=== PATIENT | female | born 2000 | race Caucasian/White ===

== ENCOUNTER → 2024-08-31 15:24 | Emergency (ER) | payer OTHER, SELFPAY ==
--- NOTE | 2024-08-31 16:12 | ED.GENMED ---
History of Present Illness
General
Chief Complaint: Skin Problem
Source: patient
Exam Limitations: none
Time Seen by Provider: 08/31/24 16:05
History of Present Illness
History of Present Illness:
23-year-old female presents with painful area of swelling to the right side of the anus starting yesterday getting worse. She has a hemorrhoid in the same area. She was seen at the clinic and was sent here. She denies fevers chest pain shortness
of breath dysuria or difficulty moving her bowels. No vomiting.
Phy Exam
Physical Exam
Physical Exam:
General: Well-appearing female no acute respiratory distress HEENT: Normocephalic atraumatic
Abdomen is soft nontender nondistended no guarding or rebound
Extremities: No cyanosis or edema
Rectal exam: Please note this was performed with female industrial gas service helper in the room. There is a 1 cm sized area of induration and fluctuance just to the right of the anus. There is a pinhole that is draining purulent fluid.
Course
Orders/Labs/Results
Orders:
Orders
08/31/24 15:39
1:1 Observation - Suicide/ Violent Behavior As Directed
08/31/24 16:36
Crisis Consult Urgent
Reason for Consult: SI
Vital Signs
Initial and Last Documented VS:
Initial Vital Signs
Temp Pulse Resp Pulse Ox
98.1 F 103 20 100
08/31/24 15:30 08/31/24 15:30 08/31/24 15:30 08/31/24 15:30
Last Documented Vital Signs
Temp Pulse Resp Pulse Ox
98.1 F 103 20 100
08/31/24 15:30 08/31/24 15:30 08/31/24 15:30 08/31/24 15:30
MDM/Problems Addressed
Differential Diagnosis Includes:
Exam most consistent with perianal abscess small and superficial in nature. Explained treatment options to the patient. The abscess was incised and drained. A moderate amount of purulent material was received. Loculations were broken up. Gauze
was placed in the area to catch any drainage. Will start on Augmentin.
Patient was screened positive for suicidal ideation. She has no intent to harm herself. She thought about and thinks about frequently taking too many pills. Crisis consult placed.
*Critical Care Note
Total Time (30-74mins, 75-104mins- exclusive of procedures): Not Applicable
Update Note
Update Note:
Patient seen and evaluated by crisis. At this point no imminent risk for injuring herself or others. She will follow-up with outpatient resources given to her by crisis department. Will prescribe Augmentin. Stable for discharge
ED Attending Note
-
Portions of this chart may have been created with voice recognition software.� Occasional wrong word or��sound alike� substitutions may have occurred due to the inherent limitations of voice recognition software.
Discharge Plan
Departure
Patient Disposition: Home (Routine Discharge)
Date of Disposition: 08/31/24
Time of Disposition: 17:45
Patient with high blood pressure during this ER visit?: No
Discharge Problem:
Abscess, perianal
Instructions: Wound Care (DC)
Prescriptions:
New
amoxicillin-pot clavulanate 875-125 mg tablet
1 tab PO BID Qty: 14 0RF
hydrocortisone [Proctocort] 1 % cream
1 applic topical TID Qty: 28.35 0RF
Referrals:
UNKNOWN - PT DOES,NOT KNOW [Unknown Provider] -
Activity Restrictions/Additional Instructions:
Use antibiotic as directed. Change gauze dressing as needed. Return if worse otherwise follow-up with your doctor
Interventions
Interventions:
*Risk Screen - Suicide Last Done: 08/31/24 15:30
*Neglect/Abuse Screening Last Done: 08/31/24 15:30
Discharge Date and Time
Print Language: THAI
== END | disposition home or self-care (01) ==
LOC: EMR 15:24
PROVIDERS: EMERGENCY PHYSICIAN Emergency Medicine
DX: K61.0 Anal abscess (principal)
CPT/HCPCS: 99282; 46050

== ENCOUNTER → 2024-09-17 14:11 | Outpatient (REF) | payer OTHER, SELFPAY | LOC: HWRAD 14:11 | DX: M25.531 Pain in right wrist (principal) | CPT/HCPCS: 73100 ==

== ENCOUNTER → 2024-10-16 12:10 | Outpatient (REF) | payer OTHER, SELFPAY | LOC: HWRAD 12:10 | DX: M25.531 Pain in right wrist (principal) | CPT/HCPCS: 73070; 73090; 73120 ==

== ENCOUNTER → 2025-02-27 10:48 | Outpatient (REF) | payer OTHER, SELFPAY | LOC: DHSLP 10:48 | DX: G47.33 Obstructive sleep apnea (adult) (pediatric) (principal) | CPT/HCPCS: 95810 ==

== ENCOUNTER → 2025-04-26 14:20 | Outpatient (REF) | payer OTHER, SELFPAY | LOC: RCS 14:20 | PROVIDERS: ATTENDING PHYSICIAN Internal Medicine Cardiovascular Disease | DX: R07.89 Other chest pain (principal) | CPT/HCPCS: 93017 ==

== ENCOUNTER → 2025-05-03 08:26 | Outpatient (REF) | payer OTHER, SELFPAY | LOC: RCS 08:26 | PROVIDERS: ATTENDING PHYSICIAN Internal Medicine Cardiovascular Disease | DX: R07.89 Other chest pain (principal); R00.2 Palpitations | CPT/HCPCS: 93306 ==

== ENCOUNTER → 2025-05-21 08:30 | Outpatient (REF) | payer OTHER, SELFPAY ==
[2025-05-21 10:42] LABS: Hematocrit 38.0 % (37.0-47.0); Hemoglobin 12.0 g/dL (12.0-16.0); Mean Corp Hgb Conc. 31.6 g/dL (33.0-37.0); Mean Corpuscular Volume 86.4 fL (81.0-99.0); Nucleated Red Blood Cells % 0 %; Platelet Count 264 10^3/uL (130-400); Red Cell Dist. Width 14.1 % (11.5-14.5)
[2025-05-21 15:15] LABS: ALT (SGPT) 15 U/L (0-35); AST (SGOT) 20 U/L (14-36); Albumin 4.5 g/dl (3.5-5.0); Alkaline Phosphatase 71 U/L (38-126); Blood Urea Nitrogen 17 mg/dl (7-17); Calcium 9.5 mg/dl (8.4-10.2); Carbon Dioxide 24 mmol/L (22-30); Chloride 106 mmol/L (98-107); Glucose 90 mg/dl (70-99); HDL Cholesterol 48 mg/dl; LDL Cholesterol, Calculated 108 mg/dl; Potassium 4.4 mmol/L (3.5-5.1); Sodium 138 mmol/L (135-145); Total Protein 7.7 g/dl (6.3-8.2); Very Low Density Lipoprotein 20 mg/dl (0-30); eGFR > 60.00
== END ==
LOC: RAD 08:30
PROVIDERS: ATTENDING PHYSICIAN Student in an Organized Health Care Education/Training Program
DX: R10.9 Unspecified abdominal pain (principal); Z13.29 Encounter for screening for other suspected endocrine disorder; F41.1 Generalized anxiety disorder; F32.1 Major depressive disorder, single episode, moderate; E66.01 Morbid (severe) obesity due to excess calories
CPT/HCPCS: 36415; 76700; 80053; 80061; 84443; 85025